=== PATIENT | female | born 1960 | race Caucasian/White ===

== ENCOUNTER 2019-03-02 12:38 | Inpatient (IN) ==
[2019-03-02 13:51] LABS: Basophils # 0.1 10*3/uL (0.0-0.2); Basophils % 0.6 % (0.0-0.8); Eosinophils # 0.2 10*3/uL (0.0-0.87); Eosinophils % 1.7 % (0.00-10.9); Hematocrit 28.1 VOL% (35.7-47.0); Hemoglobin 8.6 GM/DL (12.0-16.0); Immature Granulocytes % 0.4 %; Immature Granulocytes Absolute 0.04 #; Lymphocytes # 2.5 10*3/uL (1.4-4.0); Lymphocytes % 23.7 % (21.3-54.2); Mean Corpuscular HGB Conc 30.6 GM/DL (32-36); Mean Corpuscular Volume 96.2 FL (87-102); Mean Platelet Volume 10.5 FL (9.6-12.0); Neutrophils % 67.6 % (38.7-73.9); Platelet Count 380 T/CUMM (130-400); Red Blood Count 2.92 MC/CUMM (3.8-5.5); Red Cell Distribution Width 13.5 % (9.3-17.3); White Blood Count 10.5 T/CUMM (4-12)
[2019-03-02 14:12] LABS: Albumin 3.3 G/DL (3.4-5.0); Bilirubin,Total 0.4 MG/DL (0.2-1.0); Calcium 8.7 MG/DL (8.5-10.1); Total Protein 6.8 G/DL (6.4-8.3)
[2019-03-02] MEDS ORDERED: PANTOPRAZOLE 40 MG VIAL IV STA (14:18)
[2019-03-02] MEDS ORDERED: SODIUM CHLORIDE 0.9% 1,000 ML IV STA (14:18)
[2019-03-02 14:22] LABS: % Iron Saturation 4.5 % (18-50); Ferritin 5.1 ng/ml (8-252)
[2019-03-02 14:29] LABS: Folate > 24.0 NG/ML (5.4-24.0); Vitamin B12 545 PG/ML (211-911)
[2019-03-02] MEDS ORDERED: ONDANSETRON 4 MG/2 ML VIAL IV PRN (15:08)
[2019-03-02] MEDS ORDERED: MORPHINE 4 MG/1 ML VIAL IV PRN (15:08)
[2019-03-02] MEDS ORDERED: IRON SUCROSE 300 MG in SODIUM CHLORIDE 0.9% 100 ML IV ONE (15:20)
[2019-03-02] MEDS ORDERED: ALBUTEROL/IPRATROPIUM 3 ML NEB RESP TX PRN (15:25)
[2019-03-02 18:55] LABS: Apearance,Urine CLEAR (Clear); Bacteria,Urine Occasional /HPF (Few); Bilirubin,Urine Negative (Negative); Blood, Urine Moderate mg/dL (Negative); Glucose,Urine (UA) Negative (Negative); Ketones,Urine Negative (Negative); Mucus,Urine Occasional /LPF (Occasional); Nitrite,Urine Negative (Negative); Protein,Urine Negative; RBC,Urine 3 /HPF (0-4); Squamous Epithelial Cell,Urine Occasional /HPF (0-10); Urine Color Straw (Yellow); Urine Specific Gravity 1.006 (1.001-1.035); Urine Urobilinogen < 2.0 EU/DL (0.2-1.0); WBC,Urine 1 /HPF (0-6)
[2019-03-02] MEDS: SODIUM CHLORIDE 0.9% 1,000 ML IV SCH (19:28)
[2019-03-02] MEDS: TOPIRAMATE 100 MG TABLET PO SCH (20:37)
[2019-03-02 22:58] LABS: Hematocrit 23.8 VOL% (35.7-47.0); Hemoglobin 7.4 GM/DL (12.0-16.0)
[2019-03-03] MEDS: SODIUM CHLORIDE 0.9% 1,000 ML IV SCH (03:30)
[2019-03-03 05:32] LABS: Basophils # 0.1 10*3/uL (0.0-0.2); Basophils % 1.1 % (0.0-0.8); Eosinophils # 0.4 10*3/uL (0.0-0.87); Eosinophils % 5.6 % (0.00-10.9); Hematocrit 23.2 VOL% (35.7-47.0); Hemoglobin 7.4 GM/DL (12.0-16.0); Immature Granulocytes % 0.4 %; Immature Granulocytes Absolute 0.03 #; Lymphocytes # 2.1 10*3/uL (1.4-4.0); Lymphocytes % 28.6 % (21.3-54.2); Mean Corpuscular HGB Conc 31.9 GM/DL (32-36); Mean Corpuscular Volume 95.5 FL (87-102); Monocytes % 7.6 % (1.7-12.7); Neutrophils % 56.7 % (38.7-73.9); Platelet Count 293 T/CUMM (130-400); Red Blood Count 2.43 MC/CUMM (3.8-5.5); Red Cell Distribution Width 13.6 % (9.3-17.3); White Blood Count 7.5 T/CUMM (4-12)
[2019-03-03 07:46] LABS: Hemoglobin 7.8 GM/DL (12.0-16.0)
[2019-03-03] MEDS ORDERED: LACTATED RINGERS 1,000 ML IV SCH (08:00)
[2019-03-03] MEDS ORDERED: PANTOPRAZOLE 40 MG TABLET PO SCH (09:00)
[2019-03-03] MEDS: SUCRALFATE 1 GM/10 ML UDCUP PO SCH ×3 (12:43→21:30)
[2019-03-03] MEDS ORDERED: SUMAtriptan 6 MG/0.5 ML VIAL SUBCUT ONE (14:22)
[2019-03-03] MEDS ORDERED: SODIUM CHLORIDE 0.9% 1,000 ML IV PRN (14:24)
[2019-03-03] MEDS ORDERED: PROPOFOL 200 MG/20 ML VIAL IV ONE (14:30)
[2019-03-03] MEDS ORDERED: diphenhydrAMINE CAP 25 MG CAPSULE PO SCH (14:30)
[2019-03-03] MEDS ORDERED: ACETAMINOPHEN 325 MG TABLET PO SCH (14:30)
[2019-03-03] MEDS ORDERED: LIDOCAINE 100 MG/5 ML SYRINGE ONE (14:30)
[2019-03-03] MEDS ORDERED: diphenhydrAMINE CAP 25 MG CAPSULE PO ONE (19:00)
[2019-03-03] MEDS ORDERED: ACETAMINOPHEN 325 MG TABLET PO ONE (19:00)
[2019-03-03] MEDS: PANTOPRAZOLE 40 MG TABLET PO SCH (21:30)
[2019-03-03] MEDS: TOPIRAMATE 100 MG TABLET PO SCH (21:30)
[2019-03-04 05:51] LABS: Hematocrit 31.8 VOL% (35.7-47.0); Hemoglobin 10.1 GM/DL (12.0-16.0)
[2019-03-04 07:59] VITALS: BP 130/71
[2019-03-04] MEDS: PANTOPRAZOLE 40 MG TABLET PO SCH (08:49)
[2019-03-04] MEDS: SUCRALFATE 1 GM/10 ML UDCUP PO SCH (08:49)
== END 2019-03-04 11:30 | disposition home or self-care (01) | DRG 381 ==
LOC: N.ED 12:38 → N.EDINP 14:30 → SUATTDRO 14:30 → N.EDINP 15:19 → N.2E 15:23
PROVIDERS: ADMIT Family Medicine; ATTEND Internal Medicine